=== PATIENT | male | born 1950 | race Asian ===

== ENCOUNTER 2016-11-04 11:29 | Inpatient (IN) | payer OTHER ==
[~2016-11-04] VITALS: Ht 175.3 cm; Wt 54.6 kg
[2016-11-04 12:19] VITALS: BP 129/81; TEMP 99; Ht 175.3 cm; Wt 54.6 kg
[2016-11-04 14:48] LABS: POTASSIUM 3.2 mmol/L (3.6-5.2); SODIUM 135 mmol/L (136-145)
[2016-11-04 15:21] LABS: PLATELET COUNT 95 K/uL (142-355)
[2016-11-04 16:00] VITALS: BP 129/81; TEMP 99
[2016-11-04 20:00] VITALS: BP 97/58; TEMP 98
[2016-11-05] VITALS (7 sets, daily range): BP systolic 103–126; BP diastolic 63–90; TEMP 97.7–98.1
[2016-11-05 13:13] LABS: PLATELET COUNT 125 K/uL (142-355)
[2016-11-05 13:31] LABS: POTASSIUM 2.9 mmol/L (3.6-5.2); SODIUM 137 mmol/L (136-145)
[2016-11-06 04:00] VITALS: BP 112/76; TEMP 97.5
[2016-11-06 05:06] LABS: POTASSIUM 4.4 mmol/L (3.6-5.2); SODIUM 140 mmol/L (136-145)
[2016-11-06 08:00] VITALS: BP 132/76; TEMP 97.4
[2016-11-06 08:20] LABS: PLATELET COUNT 140 K/uL (142-355)
[2016-11-06 12:00] VITALS: BP 130/85; TEMP 97.6
[2016-11-06 16:00] VITALS: BP 144/89; TEMP 97.7
[2016-11-06 20:00] VITALS: BP 135/82; TEMP 97.9
[2016-11-07] VITALS: BP 134/82; TEMP 97.8
[2016-11-07 04:00] VITALS: BP 142/85; TEMP 97.5
[2016-11-07 05:22] LABS: PLATELET COUNT 183 K/uL (142-355)
[2016-11-07 05:35] LABS: POTASSIUM 3.8 mmol/L (3.6-5.2); SODIUM 141 mmol/L (136-145)
[2016-11-07 08:00] VITALS: BP 154/87; TEMP 97.9
[2016-11-07 12:00] VITALS: BP 167/90; TEMP 98.1
== END 2016-11-07 18:13 | disposition home or self-care (01) | DRG 190 ==
LOC: MED/SURG 11:29
PROVIDERS: ADMIT Family Medicine
DX: J44.1 Chronic obstructive pulmonary disease with (acute) exacerbation (principal); J18.8 Other pneumonia, unspecified organism; J98.11 Atelectasis; E46 Unspecified protein-calorie malnutrition; R10.12 Left upper quadrant pain; E86.0 Dehydration; E87.8 Other disorders of electrolyte and fluid balance, not elsewhere classified; F10.10 Alcohol abuse, uncomplicated
CPT/HCPCS: 36415; 36591; 80048; 80053; 81000; 82607; 82747; 82805; 83735; 83880; 84425; 85027; 85610; 85730; 87070; 87205; 93005; 94640; 94664; 94668; 94760; 96361; 96367; 96374; J1940; J1956; J2930; J3475

== ENCOUNTER 2018-10-27 15:57 | Outpatient (CLI) | payer OTHER | END 2018-10-27 16:10 | disposition short-term general hospital (02) | LOC: AMB 15:57 | DX: I46.9 Cardiac arrest, cause unspecified (principal) | CPT/HCPCS: A0425; A0433 ==

== ENCOUNTER 2018-10-27 16:10 | Emergency (ER) | payer OTHER ==
[~2018-10-27] VITALS: Ht 182.9 cm; Wt 52.2 kg
[2018-10-27 16:22] VITALS: BP 00/00
== END 2018-10-27 17:50 | disposition expired ==
LOC: ED 16:22
DX: I46.9 Cardiac arrest, cause unspecified (principal)
CPT/HCPCS: 31500; 92950; 96374; 96375; 99291; J0171